=== PATIENT | female | born 1990 | race Caucasian/White ===

== ENCOUNTER 2016-06-22 20:20 | Outpatient (CLI) | payer OTHER ==
[~2016-06-22] VITALS: Ht 167.6 cm; Wt 93.3 kg
[~2016-06-22 20:20] MED LIST: CIPR500T4 PO; FLUT9.9S NASAL; IBUP100T31; METR500T PO; METR70GE15 VAG; NITR-58 PO; PHEN-538 PO; PSEU30TA38 PO
[2016-06-22 21:00] VITALS: BP 118/75; PULSE 85; RESP 18
[2016-06-22] MEDS ORDERED: FERR134T PO (21:08)
[2016-06-22] MEDS ORDERED: PRENAT PO (21:08)
[2016-06-22] MEDS ORDERED: CALC600T5 PO (21:08)
--- NOTE | 2016-06-22 21:57 | PN ---
Date/Time of Note Date/Time of Note DATE: 06/22/16 TIME: 21:38 OB Subjective Subjective Subjective Patient c/o fevers at home and sore throat; she is afebrile her. No obstetric complaints; good fm, no vb, no LOF OB Objective Objective Objective Nml VS Abdomen- gravid, n/t SVE- deferred FHT- CAt I [place]-no ctx Abdomen: WNL Accelerations: Accelerations Present Decelerations: No Decelerations Varibility: Moderate Contractions on Admission: None OB Assessment/Plan Other Assessment: patient w URI, possible strep throat - reassuring status - no obstetric complaints Other plan: no obstetric complaints sent to main ED for rapid strep, eval of sore throat TEMO COTTRELL MD Jun 22, 2016 21:55
--- NOTE | 2016-06-22 22:43 | TRIAGE ---
OB Triage Datetime Report Generated by CPN: 06/22/2016 22:43 Datetime: 06/22/2016 20:50 Time of Arrival: 06/22/2016 20:13 EGA: 32.1 Arrived By: Wheelchair Arrived From: Home Chief Complaint: w/ c/o allergies, congestion, sore throat and fever at night since Sunday Movement: Present Contractions: Denies/Absent Rupture of Membranes: Denies Vaginal Bleeding: None Vaginal Discharge: Denies Recent Sexual Intercouse: Denies Abdominal Trauma: Not Applicable Patient Complaints: Fever; Runny Nose; Other Time Provider Notified: 06/22/2016 21:15 Provider Notified: Dr Granado Initial Plan: EFM Datetime: 06/22/2016 20:35 Maternal Assessment Level of Consciousness: Fully Conscious Headache: Denies Blurred Vision: No Nausea/Vomiting: Denies RUQ Epigastric Pain: Denies Facial Edema: None Labor Evaluation Frequency: placed Monitor Mode: External Heart Rate Monitor Mode: External US Comments: FHT 140 Pain Assessment Pain Scale: 6 Pain Presence: Constant Pain Type: Ache Pain Assessment Comments: throat
== END 2016-06-22 21:46 | disposition home or self-care (01) ==
LOC: OBT 20:20 → L-D 20:21 → OBT 21:46
PROVIDERS: ATTEND Obstetrics & Gynecology
DX: O99.513 Diseases of the respiratory system complicating pregnancy, third trimester (principal); J06.9 Acute upper respiratory infection, unspecified; Z3A.32 32 weeks gestation of pregnancy

== ENCOUNTER 2016-06-22 21:51 | Emergency (ER) | payer SELFPAY ==
[~2016-06-22] VITALS: Ht 167.6 cm; Wt 92.8 kg
[~2016-06-22 21:51] MED LIST changes: +CALC600T5 PO; +FERR134T PO; +PRENAT PO
[2016-06-22 21:55] VITALS: Ht 167.6 cm; Wt 92.8 kg
== END 2016-06-22 23:32 | disposition left against medical advice (07) ==
LOC: FTE 21:51
DX: Z53.21 Procedure and treatment not carried out due to patient leaving prior to being seen by health care provider (principal)

== ENCOUNTER 2016-08-04 12:12 | Observation (INO) | payer OTHER ==
[~2016-08-04] VITALS: Ht 167.6 cm; Wt 99.4 kg
[~2016-08-04 12:12] MED LIST changes: -CIPR500T4 PO; -FLUT9.9S NASAL; -IBUP100T31; -METR500T PO; -METR70GE15 VAG; -PHEN-538 PO; -PSEU30TA38 PO
[2016-08-04 12:27] VITALS: Ht 167.6 cm; Wt 99.4 kg
[2016-08-04 12:28] VITALS: BP 120/65; PULSE 85; RESP 18
--- NOTE | 2016-08-04 13:32 | RADRPT ---
PROCEDURE: US OB biophysical profile. CLINICAL INDICATION: evaluation TECHNIQUE: Multiple sonographic images of the pelvis were obtained. The images were reviewed on a PACS workstation. COMPARISON: No prior studies are available for comparison. FINDINGS: There is a single viable intrauterine gestation. Cardiac activity is present with 137 beats per min carmen. There is a vertex presentation. The placenta is right lateral in location. There is no evidence of placental abruption. There is a normal amount of amniotic fluid with an KEISHA = 12.8 cm. Biophysical profile: movement 2/2 tone 2/2. breathing 2/2 KEISHA 2/2 Total 11/28 RPTAT: AA . IMPRESSION: Normal biophysical profile. Normal KEISHA. Cephalic presentation. Physician Saige Date Time Electronically viewed and signed by Physician Saige on 08/04/2016 13:31 /
[2016-08-04] MEDS ORDERED: LACTATED RINGER'S 1,000 ML IV SCH ×2 (14:55→23:52)
--- NOTE | 2016-08-04 15:02 | HP ---
Date/Time of Note Date/Time of Note DATE: 08/04/16 TIME: 15:00 OB - History Hx of Present Free Text/Dictation 38+wks GA Decreased movements and some variables : 1 Para: 0 Care: Good Care Ultrasounds: Normal mid trimester US Obstetrical Complications: None Medical Complications: None Past Family/Social History * Past Medical, Surgical, Family and Obstetric Histories reviewed from chart. OB Admission Exam Vital Signs Vital Signs Vital Signs Date Time Temp Pulse Resp B/P Pulse Ox O2 Delivery O2 Flow Rate FiO2 08/04/16 12:28 98.2 85 18 120/65 Room Air Physical Exam Cervical Dilatation: None Effacement: 0% Station: Ballotable Membranes: Intact Heart Rate: 140's Accelerations: Accelerations Present Decelerations: No Decelerations Varibility: Moderate Contractions on Admission: 6-10 Minutes Apart OB Assessment/Plan Reason for admission: observation Plan: Expectant Management Other plan: Prolonged Monitoring JALYN HEWITT M.D. Aug 04, 2016 15:02
--- NOTE | 2016-08-04 15:07 | TRIAGE ---
OB Triage Datetime Report Generated by CPN: 08/04/2016 15:06 Datetime: 08/04/2016 14:38 Heart Rate FHR Baseline Rate: 145 Monitor Mode: External US Variability: Moderate 6-25 bpm Accelerations: 15X15 Decelerations: None Category: Category I Datetime: 08/04/2016 14:19 Vaginal Exam Dilatation (cms): 0.0 Effacement (%): 50 Station: -3 Exam By: S. PRICILA Datetime: 08/04/2016 14:11 Decelerations: Variable Datetime: 08/04/2016 13:37 Stage of : OB Triage Headache: Denies Labor Evaluation Frequency: 0 Monitor Mode: External Heart Rate FHR Baseline Rate: 150 Variability: Moderate 6-25 bpm Accelerations: 15X15 Decelerations: None Category: Category I Pain Assessment Pain Presence: None/Denies Pain Type: N/A Datetime: 08/04/2016 12:19 Assessment Type: Admission Assessment Maternal Assessment Level of Consciousness: Fully Conscious DTR's/Clonus: DTRs 2+; No Clonus Headache: Denies Blurred Vision: No Respiratory Effort: Unlabored; Regular Rhythm; Equal Expansion Breath Sounds, Left: Clear and Equal Breath Sounds, Right: Clear and Equal Nausea/Vomiting: Denies RUQ Epigastric Pain: Denies Lower Extremities Edema: None Degree: None Upper Extremities Edema: None Degree: None Facial Edema: None Fall Risk Assessment History of Falling: (0) No Secondary Diagnosis: (0) No Ambulatory Aid: (0) Bedrest/Nurse Assist IV Therapy: (0) No Gait: (0) Normal/Bedrest/Immobile Mental Status: (0) Oriented to Own Ability Fall Score: 0 Fall Risk Score Definition: No Risk: No action required Datetime: 08/04/2016 12:17 Time of Arrival: 08/04/2016 12:04 EGA: 38.2 Arrived By: Ambulatory Arrived From: Dr. Davis Chief Complaint: DECREASED MOVEMENT SINCE 1000 TODAY. PT. WITH PRESCRIPTION FOR NST FROM [facility] MAGY. Movement: Decreased Contractions: Denies/Absent Rupture of Membranes: Denies Vaginal Bleeding: None Vaginal Discharge: Denies Recent Sexual Intercouse: Denies Abdominal Trauma: Not Applicable Patient Complaints: None Time Provider Notified: 08/04/2016 12:57 Provider Notified: DR. HOLLIS Initial Plan: NST Datetime: 08/04/2016 12:15 Pain Assessment Pain Presence: None/Denies Datetime: 08/04/2016 12:13 Monitor Mode: External US Datetime: 06/22/2016 21:30 Stage of : OB Triage Datetime: 06/22/2016 21:00 Stage of : OB Triage Labor Evaluation Frequency: 0 Pattern: Normal: <= 5 Contractions in 10 Minutes Resting Tone Ashley: Relaxed Heart Rate FHR Baseline Rate: 150 Monitor Mode: External US FHR Baseline Changes: No Baseline Change Variability: Moderate 6-25 bpm Accelerations: 15X15 Decelerations: None Category: Category I Datetime: 06/22/2016 20:50 EGA: 32.1
[2016-08-04] MEDS: LACTATED RINGER'S 1,000 ML IV SCH ×2 (15:49→20:59)
[2016-08-04 16:03] LABS: ADD SCAN DIFF NO
[2016-08-04 16:05] LABS: BASOPHILS % 0.2 % (0.0-2.0); EOSINOPHILS # 0.1 10^3/ul (0.0-0.5); EOSINOPHILS % 0.5 % (0.0-7.0); HEMOGLOBIN 13.8 g/dl (12.0-16.0); LYMPHOCYTES # 1.6 10^3/ul (0.8-2.9); LYMPHOCYTES % 10.8 % (15.0-51.0); MEAN CORPUSCULAR HEMOGLOBIN 30.3 pg (29.0-33.0); MEAN CORPUSCULAR HGB CONC 33.7 g/dl (32.0-37.0); MEAN CORPUSCULAR VOLUME 89.9 fl (82.0-101.0); MEAN PLATELET VOLUME 11.7 fl (7.4-10.4); MONOCYTE # 1.4 10^3/ul (0.3-0.9); MONOCYTES % 9.7 % (0.0-11.0); NEUTROPHIL # 11.3 10^3/ul (1.6-7.5); NEUTROPHILS % 77.9 % (39.0-77.0); PLATELET COUNT 230 10^3/UL (140-415); RED BLOOD COUNT 4.56 10^6/ul (4.20-5.40); RED CELL DISTRIBUTION WIDTH 13.8 % (11.5-14.5); WHITE BLOOD COUNT 14.5 10^3/ul (4.8-10.8)
[2016-08-04 16:17] LABS: INR 0.9; PARTIAL THROMBOPLASTIN TIME 27.3 Sec (25.0-35.0); PROTIME 12.1 Sec (12.2-14.2); PT RATIO 0.9
[2016-08-05] MEDS: LACTATED RINGER'S 1,000 ML IV SCH (05:07)
[2016-08-05] MEDS ORDERED: MULTIVIT/MIN/FOLATE/IRON/PREN TAB PO SCH (09:00)
[2016-08-05] MEDS ORDERED: FERROUS SULFATE (EC) 325 MG TAB PO SCH (09:00)
[2016-08-05] MEDS ORDERED: OXYTOCIN 30 UNITS/LR 500 ML IV SCH (09:30)
--- NOTE | 2016-08-05 10:29 | QN ---
Documentation Comment Laborist 38+3wks GA Pt admitted yesterday for prolonged monitoring 2/2 variable decels in triage in the setting of presentation for decreased FM with BPP 11/28. FHT reviewed this AM and variable decel noted x1 along with several non- repetitive late-shaped decels without corresponding UCs and early decel x1. On toco, rare UCs were seen. Given Category 2 FHT, recommended initiating a CLINICAL NURSE LEADER for reassurance and to evaluate ability to withstand stress of frequent UCs. Pt declined in favor of going home. States she feels fine and would rather go home and return if she felt something were wrong. Pt was asked to sign an AMA form prior to leaving the hospital and after reviewing risks of leaving prior to confirming wellbeing and placenta functionality with more frequent UCs. Risks discussed include but are not limited to , distress or compromise and neurological injury in fetus. Pt was able to verbalize risks discussed and acknowledged risks may be greater than those stated prior to signing AMA form. She was also able to verbalize the reasoning for CLINICAL NURSE LEADER prior to signing AMA form. Pt was counseled and form signed in presence of patient's RN. Questions were answered to the patient's satisfaction. She reports her next OB appt is Friday 08/[address] Ledezma. Return precautions reviewed in detail, including ROM, labor and FKC. GRANT WATSON MD Aug 05, 2016 10:29
== END 2016-08-05 10:20 | disposition left against medical advice (07) ==
LOC: L-D 12:12 → OBT 12:12 → OBG 15:07
PROVIDERS: ADMIT Obstetrics & Gynecology; ATTEND Obstetrics & Gynecology
DX: O36.8130 Decreased fetal movements, third trimester, not applicable or unspecified (principal); Z3A.38 38 weeks gestation of pregnancy
CPT/HCPCS: 76818; 85025; 85610; 85730; 86592; J7120; Z7500; Z7610; 99217; G0378; G0463

== ENCOUNTER 2016-08-13 07:20 | Inpatient (IN) | payer OTHER ==
[~2016-08-13] VITALS: Ht 167.6 cm; Wt 100.9 kg
[2016-08-13 07:35] VITALS: BP 130/72; PULSE 75; RESP 20; Ht 167.6 cm; Wt 100.9 kg
--- NOTE | 2016-08-13 08:07 | TRIAGE ---
OB Triage Datetime Report Generated by CPN: 08/13/2016 08:07 Datetime: 08/13/2016 07:42 Vaginal Exam Dilatation (cms): 3.0 Effacement (%): 70 Station: -2 Exam By: khemani Vaginal Bleeding: None Cervix, Consistency: Moderate Cervix, Position: Midposition Datetime: 08/13/2016 07:31 Assessment Type: Triage Maternal Assessment Level of Consciousness: Fully Conscious Maternal Assessment Level of Consciousness: Fully Conscious DTR's/Clonus: DTRs 2+; No Clonus Headache: Denies Headache: Denies Blurred Vision: No Blurred Vision: No Respiratory Effort: Unlabored; Regular Rhythm; Equal Expansion Respiratory Effort: Unlabored Breath Sounds, Left: Clear and Equal Breath Sounds, Right: Clear and Equal Nausea/Vomiting: Denies Nausea/Vomiting: Denies RUQ Epigastric Pain: Denies RUQ Epigastric Pain: Denies Lower Extremities Edema: Bilateral Lower Extremities Degree: 1+ Upper Extremities Edema: None Degree: None Facial Edema: None Fall Risk Assessment History of Falling: (0) No Secondary Diagnosis: (0) No Ambulatory Aid: (0) Bedrest/Nurse Assist IV Therapy: (0) No Gait: (0) Normal/Bedrest/Immobile Mental Status: (0) Oriented to Own Ability Fall Score: 0 Fall Risk Score Definition: No Risk: No action required Datetime: 08/13/2016 07:24 Monitor Mode: External Monitor Mode: External US Datetime: 08/05/2016 09:04 Stage of : Antepartum Maternal Assessment Level of Consciousness: Fully Conscious Headache: Denies Nausea/Vomiting: Denies RUQ Epigastric Pain: Denies Labor Evaluation Frequency: rare Monitor Mode: External Duration (sec)2399: 90 Quality: Mild Heart Rate FHR Baseline Rate: 140 Monitor Mode: External US Variability: Moderate 6-25 bpm Accelerations: 10X10 Pain Assessment Pain Scale: 0 Pain Presence: None/Denies Membrane Status: Intact Vaginal Bleeding: None Datetime: 08/05/2016 08:05 Stage of : Antepartum Maternal Assessment Level of Consciousness: Fully Conscious Headache: Denies Nausea/Vomiting: Denies RUQ Epigastric Pain: Denies Labor Evaluation Frequency: rare Monitor Mode: External Duration (sec)2399: 90 Quality: Mild Contraction Comments: pt. denies Heart Rate FHR Baseline Rate: 145 Monitor Mode: External US Variability: Moderate 6-25 bpm Accelerations: 10X10 Decelerations: Early Pain Assessment Pain Scale: 0 Pain Presence: None/Denies Membrane Status: Intact Vaginal Bleeding: None Datetime: 08/05/2016 07:17 Assessment Type: Ongoing Assessment Maternal Assessment Level of Consciousness: Fully Conscious Maternal Assessment Level of Consciousness: Fully Conscious DTR's/Clonus: DTRs 2+; No Clonus Headache: Denies Headache: Denies Blurred Vision: No Blurred Vision: No Respiratory Effort: Unlabored; Regular Rhythm; Equal Expansion Respiratory Effort: Unlabored Breath Sounds, Left: Clear and Equal Breath Sounds, Right: Clear and Equal Nausea/Vomiting: Denies Nausea/Vomiting: Denies RUQ Epigastric Pain: Denies RUQ Epigastric Pain: Denies Lower Extremities Edema: None Upper Extremities Edema: None Facial Edema: None Fall Risk Assessment History of Falling: (0) No Secondary Diagnosis: (0) No Ambulatory Aid: (0) Bedrest/Nurse Assist Gait: (0) Normal/Bedrest/Immobile Mental Status: (0) Oriented to Own Ability Pain Presence: None/Denies Datetime: 08/05/2016 07:00 Labor Evaluation Frequency: OCC Monitor Mode: External Heart Rate FHR Baseline Rate: 135 Monitor Mode: External US FHR Baseline Changes: No Baseline Change Variability: Moderate 6-25 bpm Accelerations: 15X15 Decelerations: None Category: Category I Datetime: 08/05/2016 06:00 Labor Evaluation Frequency: IRREG Monitor Mode: External Quality: Mild Heart Rate FHR Baseline Rate: 135 Monitor Mode: External US FHR Baseline Changes: No Baseline Change Variability: Moderate 6-25 bpm Accelerations: 15X15 Decelerations: None Category: Category I Datetime: 08/05/2016 05:05 Temperature Route: Oral Pain Assessment Pain Scale: 0 Pain Goal: 4 Datetime: 08/05/2016 05:00 Monitor Mode: External Duration (sec)2399: 0 Heart Rate FHR Baseline Rate: 140 Monitor Mode: External US FHR Baseline Changes: No Baseline Change Variability: Moderate 6-25 bpm Accelerations: 15X15 Decelerations: None Category: Category I Datetime: 08/05/2016 04:00 Labor Evaluation Frequency: 0 Monitor Mode: External Heart Rate FHR Baseline Rate: 140 Monitor Mode: External US FHR Baseline Changes: No Baseline Change Variability: Moderate 6-25 bpm Accelerations: 15X15 Decelerations: None Category: Category I Datetime: 08/05/2016 03:00 Labor Evaluation Frequency: 0 Monitor Mode: External Heart Rate FHR Baseline Rate: 140 Monitor Mode: External US FHR Baseline Changes: No Baseline Change Variability: Moderate 6-25 bpm Accelerations: 15X15 Decelerations: None Category: Category I Datetime: 08/05/2016 02:00 Labor Evaluation Frequency: 0 Monitor Mode: External Heart Rate FHR Baseline Rate: 150 Monitor Mode: External US FHR Baseline Changes: No Baseline Change Variability: Moderate 6-25 bpm Accelerations: 15X15 Decelerations: None Category: Category I Datetime: 08/05/2016 01:00 Labor Evaluation Frequency: 0 Monitor Mode: External Heart Rate FHR Baseline Rate: 145 Monitor Mode: External US FHR Baseline Changes: No Baseline Change Variability: Moderate 6-25 bpm Accelerations: 15X15 Decelerations: None Category: Category I Datetime: 08/05/2016 00:09 Temperature Route: Oral Datetime: 08/05/2016 00:00 Labor Evaluation Frequency: 0 Monitor Mode: External Heart Rate FHR Baseline Rate: 145 Monitor Mode: External US FHR Baseline Changes: No Baseline Change Variability: Moderate 6-25 bpm Accelerations: 15X15 Decelerations: None Category: Category I Datetime: 08/04/2016 23:00 Labor Evaluation Frequency: 0 Monitor Mode: External Heart Rate FHR Baseline Rate: 145 Monitor Mode: External US FHR Baseline Changes: No Baseline Change Variability: Moderate 6-25 bpm Accelerations: 15X15 Decelerations: None Category: Category I Datetime: 08/04/2016 22:00 Labor Evaluation Frequency: 0 Monitor Mode: External Heart Rate FHR Baseline Rate: 150 Monitor Mode: External US FHR Baseline Changes: No Baseline Change Variability: Moderate 6-25 bpm Accelerations: 15X15 Decelerations: None Category: Category I Datetime: 08/04/2016 21:00 Monitor Mode: External Duration (sec)2399: 0 Heart Rate FHR Baseline Rate: 155 Monitor Mode: External US FHR Baseline Changes: No Baseline Change Variability: Moderate 6-25 bpm Accelerations: 15X15 Decelerations: None Category: Category I Datetime: 08/04/2016 20:00 Labor Evaluation Frequency: SL IRRITABL Monitor Mode: External Duration (sec)2399: 20-30 Quality: Mild Heart Rate FHR Baseline Rate: 150 Monitor Mode: External US FHR Baseline Changes: No Baseline Change Variability: Moderate 6-25 bpm Accelerations: 15X15 Decelerations: None Category: Category I Datetime: 08/04/2016 19:20 Assessment Type: Ongoing Assessment Maternal Assessment Level of Consciousness: Fully Conscious Headache: Denies Blurred Vision: No Respiratory Effort: Unlabored; Regular Rhythm; Equal Expansion Nausea/Vomiting: Denies RUQ Epigastric Pain: Denies Lower Extremities Edema: None Upper Extremities Edema: None Facial Edema: None Temperature Route: Oral Fall Risk Assessment History of Falling: (0) No Secondary Diagnosis: (0) No Ambulatory Aid: (0) Bedrest/Nurse Assist IV Therapy: (20) Yes Gait: (0) Normal/Bedrest/Immobile Mental Status: (0) Oriented to Own Ability Fall Score: 20 Fall Risk Score Definition: No Risk: No action required Pain Assessment Pain Scale: 0 Pain Goal: 4 Datetime: 08/04/2016 19:15 Stage of : Antepartum Datetime: 08/04/2016 18:50 Labor Evaluation Frequency: 0 Monitor Mode: External Duration (sec)2399: 0 Pattern: Normal: <= 5 Contractions in 10 Minutes Heart Rate FHR Baseline Rate: 150 Monitor Mode: External US FHR Baseline Changes: No Baseline Change Variability: Moderate 6-25 bpm Accelerations: 15X15 Decelerations: None Category: Category I Datetime: 08/04/2016 18:00 Labor Evaluation Frequency: OCCASIONAL Monitor Mode: External Duration (sec)2399: 60-80 Pattern: Normal: <= 5 Contractions in 10 Minutes Heart Rate FHR Baseline Rate: 140 Monitor Mode: External US FHR Baseline Changes: No Baseline Change Variability: Moderate 6-25 bpm Accelerations: 15X15 Decelerations: None Category: Category I Datetime: 08/04/2016 17:00 Labor Evaluation Frequency: 2-9 Monitor Mode: External Duration (sec)2399: 40-80 Pattern: Normal: <= 5 Contractions in 10 Minutes Resting Tone Cob[place]: Relaxed Heart Rate FHR Baseline Rate: 140 Monitor Mode: External US FHR Baseline Changes: No Baseline Change Variability: Marked >25 bpm Accelerations: 15X15 Decelerations: None Category: Category I Datetime: 08/04/2016 16:01 Labor Evaluation Frequency: OCCASIONAL Monitor Mode: External Duration (sec)2399: 40-70 Pattern: Normal: <= 5 Contractions in 10 Minutes Resting Tone Cob[place]: Relaxed Contraction Comments: DENIES FEELING ANY UC'S Heart Rate FHR Baseline Rate: 140 Monitor Mode: External US FHR Baseline Changes: No Baseline Change Variability: Moderate 6-25 bpm Accelerations: 15X15 Decelerations: None Category: Category I Datetime: 08/04/2016 15:24 Assessment Type: Admission Assessment Time of Arrival: 08/13/2016 07:14 EGA: 39.4 Arrived By: Ambulatory Arrived From: Home Chief Complaint: PT HERE C/O UC'S SINCE 399 Movement: Present Contractions: Irregular Time Contractions Began: 08/13/2016 04:00 Rupture of Membranes: Denies Vaginal Bleeding: None Vaginal Discharge: Present Recent Sexual Intercouse: Denies Abdominal Trauma: Not Applicable Patient Complaints: Contractions; Cramping; Back Pain Time Provider Notified: 08/13/2016 08:04 Provider Notified: BUNNY Initial Plan: EFM, SVE Maternal Assessment Level of Consciousness: Fully Conscious DTR's/Clonus: DTRs 2+; No Clonus Headache: Denies Blurred Vision: No Respiratory Effort: Unlabored; Regular Rhythm; Equal Expansion Breath Sounds, Left: Clear and Equal Breath Sounds, Right: Clear and Equal Nausea/Vomiting: Denies RUQ Epigastric Pain: Denies Lower Extremities Edema: Bilateral Lower Extremities Degree: TRACE PEDAL EDEMA Facial Edema: None Fall Risk Assessment History of Falling: (0) No Secondary Diagnosis: (0) No Ambulatory Aid: (0) Bedrest/Nurse Assist IV Therapy: (0) No Gait: (0) Normal/Bedrest/Immobile Mental Status: (0) Oriented to Own Ability Fall Score: 0 Fall Risk Score Definition: No Risk: No action required Pain Assessment Pain Scale: 0 Pain Presence: None/Denies Datetime: 08/04/2016 15:22 Time of Arrival: 08/04/2016 15:10 EGA: 38.2 Arrived By: Wheelchair Arrived From: Other Unit in Hospital Datetime: 08/04/2016 12:19 Fall Score: 0 Fall Risk Score Definition: No Risk: No action required Datetime: 08/04/2016 12:17 EGA: 38.2 Datetime: 06/22/2016 20:50 EGA: 32.1
[2016-08-13] MEDS ORDERED: MISOPROSTOL 200 MCG TAB PR PRN ×2 (08:30→15:00)
[2016-08-13] MEDS ORDERED: LACTATED RINGER'S 1,000 ML IV PRN (08:30)
[2016-08-13] MEDS ORDERED: BUTORPHANOL 2 MG INJ IV PRN (08:30)
[2016-08-13] MEDS ORDERED: OXYTOCIN 30 UNITS/LR 500 ML IV PRN ×2 (08:30→15:00)
[2016-08-13] MEDS ORDERED: METHYLERGONOVINE 0.2 MG INJ IM PRN ×2 (08:30→15:00)
[2016-08-13] MEDS ORDERED: OXYTOCIN 30 UNITS/LR 500 ML IV SCH ×2 (08:30)
[2016-08-13] MEDS ORDERED: IBUPROFEN 600 MG TAB PO PRN (08:30)
[2016-08-13] MEDS ORDERED: CARBOPROST 250 MCG INJ IM PRN ×2 (08:30→15:00)
[2016-08-13] MEDS ORDERED: LIDOCAINE 1% (MPF) 30 ML INJ INJ PRN (08:30)
[2016-08-13] MEDS: LACTATED RINGER'S 1,000 ML IV SCH ×4 (08:33→21:53)
[2016-08-13 09:10] LABS: ADD SCAN DIFF NO
[2016-08-13 09:13] LABS: ABNORMAL IP MESSAGE 1; BASOPHIL # 0.1 10^3/ul (0.0-0.1); BASOPHILS % 0.4 % (0.0-2.0); EOSINOPHILS # 0.1 10^3/ul (0.0-0.5); EOSINOPHILS % 0.6 % (0.0-7.0); HEMATOCRIT 39.6 % (37.0-47.0); HEMOGLOBIN 13.7 g/dl (12.0-16.0); LYMPHOCYTES # 1.5 10^3/ul (0.8-2.9); LYMPHOCYTES % 8.8 % (15.0-51.0); MEAN CORPUSCULAR HEMOGLOBIN 30.9 pg (29.0-33.0); MEAN CORPUSCULAR HGB CONC 34.6 g/dl (32.0-37.0); MEAN CORPUSCULAR VOLUME 89.4 fl (82.0-101.0); MEAN PLATELET VOLUME 11.7 fl (7.4-10.4); MONOCYTE # 1.7 10^3/ul (0.3-0.9); MONOCYTES % 10.2 % (0.0-11.0); NEUTROPHIL # 13.3 10^3/ul (1.6-7.5); NEUTROPHILS % 78.9 % (39.0-77.0); PLATELET COUNT 214 10^3/UL (140-415); RED BLOOD COUNT 4.43 10^6/ul (4.20-5.40); RED CELL DISTRIBUTION WIDTH 13.5 % (11.5-14.5); WHITE BLOOD COUNT 16.8 10^3/ul (4.8-10.8)
[2016-08-13 09:26] LABS: INR 0.83; PROTIME 11.4 Sec (12.2-14.2); PT RATIO 0.9
[2016-08-13 09:27] LABS: PARTIAL THROMBOPLASTIN TIME 29.5 Sec (25.0-35.0)
--- NOTE | 2016-08-13 09:41 | RADRPT ---
PROCEDURE: Biophysical profile CLINICAL INDICATION: distress, decelerations TECHNIQUE: Color and reese-scale ultrasound images of an intrauterine gestation were obtained. COMPARISON: August 04, 2016 FINDINGS: A single live intrauterine gestation is identified in cephalic position with an estimated hear t rate of 139 beats per minute. The placenta is located laterally to the right and has a grade III. The cervix is obscured by head shadows. No evidence of abruption identified. KEISHA is 8.7 cm. movement 2/2. tone 0/2. breathing movement 2/2. Qualitative AFV 2/2 Total biophysical profile 09/28 IMPRESSION: 09/28 biophysical profile. tone is not identified. RPTAT: AA .Dyllan Sanchez MD, Date Time Electronically viewed and signed by .Dyllan Sanchez MD, on 08/13/2016 09:41 .P/
[2016-08-13] MEDS ORDERED: CEFAZOLIN 2 GM/50 ML (PMX) 50 ML IV SCH (10:00)
[2016-08-13] MEDS ORDERED: OXYTOCIN 10 UNIT INJ ONE (10:38)
[2016-08-13] MEDS ORDERED: METOCLOPRAMIDE 10 MG INJ ONE (10:38)
[2016-08-13] MEDS ORDERED: EPHEDrine SULFATE 50 MG/5 ML SYG ONE (10:38)
[2016-08-13] MEDS ORDERED: morphine SULFATE/PF (10 MG/10 ML) INJ ONE (10:38)
[2016-08-13] MEDS ORDERED: ONDANSETRON 4 MG INJ ONE (10:38)
[2016-08-13] MEDS ORDERED: OXYTOCIN 30 UNITS/LR 500 ML IV ONE (10:38)
--- NOTE | 2016-08-13 10:43 | HP ---
Date/Time of Note Date/Time of Note DATE: 08/13/16 TIME: 10:41 OB - History Hx of Present Free Text/Dictation term preg. admitted in labor having variable decleraions and a decreased BPP : 1 Para: 0 Care: Good Care Ultrasounds: Normal mid trimester US Obstetrical Complications: None Medical Complications: None Past Family/Social History * Past Medical, Surgical, Family and Obstetric Histories reviewed from chart. OB Admission Exam Vital Signs Vital Signs Vital Signs Date Time Temp Pulse Resp B/P Pulse Ox O2 Delivery O2 Flow Rate FiO2 08/13/16 07:35 98.4 75 20 130/72 97 Room Air Physical Exam HEENT: WNL Heart: Rhythm Normal Lungs: Clear, Equal Abdomen: WNL Extremities: Normal Reflexes: Normal Cervical Dilatation: 2cm Effacement: 25% Station: -3 Membranes: Ruptured Heart Rate: 130's Decelerations: Variable Decelerations Varibility: Moderate Contractions on Admission: 6-10 Minutes Apart Intensity: Mild Last 72 hours Lab Results CBC & BMP 08/13/16 08:15 OB Assessment/Plan Reason for admission: section Plan: Section SAMANTHA HOLLIS MD Aug 13, 2016 10:43
--- NOTE | 2016-08-13 10:45 | OPR ---
Operative Report Planned Procedure Procedure date Aug 13, 2016 Performed by: SAMANTHA HOLLIS MD Assisting provider: JALYN HEWITT M.D. Anesthesia Type: spinal Procedure Description Under satisfactory spinal anesthesia, the patient was prepped and draped and placed in a supine position, tilted to the left. Pfannenstiel incision was made , carried through the subcutaneous tissue. Bleeders brought under control with electrocautery. Fascia incised to the length of the incision. Rectus muscles from the fascia, divided midline. Peritoneum exposed, entered through a transverse incision. Exploration of abdomen revealed gravid uterus. Bladder flap was developed. Transverse incision was made in the lower segment of the uterus. Amniotic sac ruptured. [] amniotic fluid noted. [] Nasal oropharyngeal suction was performed. The baby was handed to the team for immediate attention. The placenta was delivered manually intact. Uterine cavity was cleaned with wet sponge and drainage established. Uterus closed in 2 layers using one monocryl in continuous fashion. Peritoneal cavity irrigated with warm saline. Sponge, needle and instrument count reported to be correct. Abdominal peritoneum closed with one monocryl continuously. Rectus muscle approximated with []. Fascia closed with one monocryl, and skin closed with gama. Estimated blood loss 700[]mL. Urine bag contained []mL of urine Post-Procedure Findings: Live Baby [], Apgars [] and [], weight [], position [], [] presentation []cord. Specimen removed: Yes Complications: None Pt Condition post procedure: stable Physician Certification I, the undersigned physician, hereby certify that I have discussed the procedure described in this consent form with this patient (or the patient's legal technical support representative), including: * The risk and benefits of the procedure; * Any adverse reactions that may reasonably be expected to occur; * Any alternative efficacious methods of treatment which may be medically viable ; * The potential problems that may occur during recuperation; * Potential for blood transfusion and associated risks/benefits; and * Any research or economic interest I may have regarding this treatment. I further certify that the patient/legally responsible person was encouraged to ask question and that all questions were answered. SAMANTHA HOLLIS MD Aug 13, 2016 10:45
[2016-08-13] MEDS ORDERED: morphine SULFATE/PF (10 MG/10 ML) INJ SPINAL ONE (12:30)
[2016-08-13] MEDS ORDERED: NALOXONE (0.4 MG/ML) INJ IV PRN (12:30)
[2016-08-13] MEDS ORDERED: ONDANSETRON 4 MG INJ IV PRN (12:30)
[2016-08-13] MEDS ORDERED: EPHEDrine SULFATE 50 MG/5 ML SYG IV PRN (12:30)
[2016-08-13] MEDS ORDERED: DIPHENHYDRAMINE 50 MG INJ IV PRN (12:30)
[2016-08-13] MEDS ORDERED: morphine 2 MG INJ IV PRN ×2 (12:30)
[2016-08-13] MEDS ORDERED: HYDROmorphONE 1 MG/ML SYG IV PRN ×2 (12:30)
[2016-08-13] MEDS: KETOROLAC 30 MG INJ IV PRN (12:57)
[2016-08-13 14:05] VITALS: BP 125/81; PULSE 87; RESP 18
[2016-08-13] MEDS ORDERED: LANOLIN 7 GM TUBE TOP PRN (15:00)
[2016-08-13] MEDS ORDERED: NACL 0.9% 3 ML SYG IV SCH (15:00)
[2016-08-13] MEDS ORDERED: ACETAMINOPHEN/CODEINE #3 TAB PO PRN (15:00)
[2016-08-13] MEDS ORDERED: NA PHOSPHATE/BIPHOS 133 ML ENEMA PR PRN (15:00)
[2016-08-13 16:20] VITALS: BP 118/61; PULSE 89; RESP 16
[2016-08-13] MEDS: OXYTOCIN 30 UNITS/LR 500 ML IV SCH ×2 (17:43→18:38)
[2016-08-13 20:00] VITALS: BP 127/75; PULSE 102; RESP 18
[2016-08-14] VITALS: BP 125/59; PULSE 109; RESP 20
[2016-08-14 04:00] VITALS: BP 106/58; PULSE 105; RESP 18
[2016-08-14] MEDS: KETOROLAC 30 MG INJ IV PRN ×2 (05:01→10:53)
[2016-08-14] MEDS: LACTATED RINGER'S 1,000 ML IV SCH (05:56)
[2016-08-14 07:39] LABS: ADD SCAN DIFF NO
[2016-08-14 07:45] VITALS: BP 105/56; PULSE 94; RESP 19
[2016-08-14 07:48] LABS: ABNORMAL IP MESSAGE 1; BASOPHILS % 0.2 % (0.0-2.0); EOSINOPHILS # 0.1 10^3/ul (0.0-0.5); EOSINOPHILS % 0.4 % (0.0-7.0); HEMATOCRIT 35.7 % (37.0-47.0); HEMOGLOBIN 11.8 g/dl (12.0-16.0); LYMPHOCYTES # 1.3 10^3/ul (0.8-2.9); LYMPHOCYTES % 8.3 % (15.0-51.0); MEAN CORPUSCULAR HEMOGLOBIN 30.1 pg (29.0-33.0); MEAN CORPUSCULAR HGB CONC 33.1 g/dl (32.0-37.0); MEAN CORPUSCULAR VOLUME 91.1 fl (82.0-101.0); MEAN PLATELET VOLUME 11.9 fl (7.4-10.4); MONOCYTE # 1.6 10^3/ul (0.3-0.9); MONOCYTES % 10.3 % (0.0-11.0); NEUTROPHIL # 12.7 10^3/ul (1.6-7.5); NEUTROPHILS % 80.2 % (39.0-77.0); PLATELET COUNT 184 10^3/UL (140-415); RED BLOOD COUNT 3.92 10^6/ul (4.20-5.40); WHITE BLOOD COUNT 15.9 10^3/ul (4.8-10.8)
[2016-08-14 11:30] VITALS: BP 103/55; PULSE 90; RESP 18
[2016-08-14] MEDS: IBUPROFEN 800 MG TAB PO SCH ×2 (14:00→21:37)
[2016-08-14 16:00] VITALS: BP 109/53; PULSE 84; RESP 18
[2016-08-14 20:00] VITALS: BP 114/53; PULSE 95; RESP 18
[2016-08-14] MEDS: OXYCODONE/ACETAMINOPHEN (5/325) TAB PO PRN (20:02)
[2016-08-15] MEDS: OXYCODONE/ACETAMINOPHEN (5/325) TAB PO PRN ×3 (01:57→20:05)
[2016-08-15 04:00] VITALS: BP 115/56; PULSE 79; RESP 18
[2016-08-15] MEDS: IBUPROFEN 800 MG TAB PO SCH ×3 (05:34→21:49)
[2016-08-15 08:00] VITALS: BP 123/61; PULSE 84; RESP 18
--- NOTE | 2016-08-15 10:49 | PN ---
Date/Time of Note Date/Time of Note DATE: 08/15/16 TIME: 10:40 OB Subjective Subjective Subjective Post C Section day 2 Patient is doing well, Ambulatory She is afebrile Abdomen is soft , Fundus is firm Incision is clean Moderate amount of lochia Breasts are soft, Nipples are intact No calf tenderness. No ankle edema Breast feeding the new born. New born is doing well Current Medications Medications (Trade) Dose Ordered Sig/Catrina Route PRN Reason Start Time Stop Time Status Last Admin Dose Admin Lactated Ringer's (Lr) 1,000 ml @ 125 mls/hr Q8H IV 08/13/16 08:07 08/13/16 14:44 DC 08/13/16 08:35 Butorphanol Tartrate (Stadol) 2 mg Q2H PRN IV PAIN 08/13/16 08:30 08/13/16 14:44 DC Lidocaine 30 ml 30 ml ONCE PRN INJ EPISIOTOMY/TEARING 08/13/16 08:30 08/13/16 14:44 DC Oxytocin/Lactated Ringer's 500 ml @ 125 mls/hr ONCE -MAY REPEAT X1 IV 08/13/16 08:30 08/13/16 14:44 DC 08/13/16 13:51 Oxytocin/Lactated Ringer's 500 ml @ 125 mls/hr ONCE IV 08/13/16 08:30 08/13/16 14:44 DC Ibuprofen 600 mg 600 mg ONCE PRN PO Mild Pain (Pain Score 1-3) 08/13/16 08:30 08/13/16 14:44 DC Lactated Ringer's 1,000 ml @ 2,000 mls/hr Q30M PRN IV PRE-EPIDURAL BOLUS 08/13/16 08:30 08/13/16 14:44 DC Oxytocin/Lactated Ringer's 500 ml @ 0 mls/hr ONCE PRN IV For Hemorrhage Management 08/13/16 08:30 08/13/16 14:44 DC Methylergonovine Maleate (Methergine) 0.2 mg ONCE PRN IM VAGINAL BLEEDING 08/13/16 08:30 08/13/16 14:44 DC Carboprost Tromethamine (Hemabate) 250 mcg ONCE PRN IM VAGINAL BLEEDING 08/13/16 08:30 08/13/16 14:44 DC Misoprostol 1000 mcg 1,000 mcg ONCE PRN ME VAGINAL BLEEDING 08/13/16 08:30 08/13/16 14:44 DC Cefazolin Sodium/ Dextrose (Ancef 2 Gm/50 ml (Pmx)) 50 ml @ 100 mls/hr ONCE IV 08/13/16 10:00 08/13/16 14:44 DC Ephedrine Sulfate 50 mg 50 mg STK-MED ONCE .ROUTE 08/13/16 10:38 08/13/16 10:39 DC Oxytocin/Lactated Ringer's 500 ml @ ud STK-MED ONCE IV 08/13/16 10:38 08/13/16 10:39 DC Morphine Sulfate (Duramorph) 10 mg STK-MED ONCE .ROUTE 08/13/16 10:38 08/13/16 10:39 DC Ondansetron HCl (Zofran Inj) 4 mg STK-MED ONCE .ROUTE 08/13/16 10:38 08/13/16 10:39 DC Metoclopramide HCl (Reglan) 10 mg STK-MED ONCE .ROUTE 08/13/16 10:38 08/13/16 10:39 DC Oxytocin (Oxytocin) 10 units STK-MED ONCE .ROUTE 08/13/16 10:38 08/13/16 10:39 DC Naloxone HCl (Narcan) 0.1 mg Q2M PRN IV FOR RESP RATE 8 OR LESS 08/13/16 12:30 08/14/16 12:29 DC Ketorolac Tromethamine (Toradol) 30 mg Q6H PRN IV PAIN 08/13/16 12:30 08/14/16 12:29 DC 08/14/16 10:53 Morphine Sulfate (morphine) 2 mg Q3H PRN IV PAIN LEVEL 1-5 08/13/16 12:30 08/14/16 12:29 DC Morphine Sulfate (morphine) 4 mg Q3H PRN IV PAIN LEVEL 6-10 08/13/16 12:30 08/14/16 12:29 DC Hydromorphone HCl (Dilaudid) 0.2 mg Q3H PRN IV PAIN LEVEL 1-5 08/13/16 12:30 08/14/16 12:29 DC Hydromorphone HCl (Dilaudid) 0.4 mg Q3H PRN IV PAIN LEVEL 6-10 08/13/16 12:30 08/14/16 12:29 DC Diphenhydramine HCl (Benadryl) 25 mg Q6H PRN IV ITCHING 08/13/16 12:30 08/14/16 12:29 DC Ondansetron HCl (Zofran Inj) 4 mg Q6H PRN IV NAUSEA AND/OR VOMITING 08/13/16 12:30 08/14/16 12:29 DC 08/13/16 12:40 Morphine Sulfate (Duramorph) 0.3 mg GIVEN ANESTH ONCE SPINAL 08/13/16 12:30 08/13/16 12:31 DC Ephedrine Sulfate 5 mg 5 mg [id number] PRN IV BLOOD PRESSURE SUPPORT 08/13/16 12:30 08/13/16 14:44 DC Lactated Ringer's (Lr) 1,000 ml @ 125 mls/hr Q8H IV 08/13/16 14:38 08/14/16 12:11 DC 08/14/16 05:56 IV Flush 3 ml 3 ml PER PROTOCOL IV 08/13/16 15:00 Oxytocin/Lactated Ringer's 500 ml @ 125 mls/hr Q4H IV 08/13/16 14:38 08/13/16 22:37 DC 08/13/16 17:43 Acetaminophen/ Codeine Phosphate (Tylenol No.3) 2 tab Q4H PRN PO PAIN LEVEL 7-10 08/13/16 15:00 Oxycodone/ Acetaminophen (Percocet (5/ 325)) 2 tab Q4H PRN PO PAIN LEVEL 7-10 08/13/16 15:00 08/15/16 10:29 Ibuprofen (Motrin) 800 mg Q8 PO 08/14/16 14:00 08/15/16 05:34 Simethicone (Mylicon) 160 mg Q8H PRN PO DISTENSION/GAS/BLOATING 08/13/16 15:00 Sodium Biphosphate/ Sodium Phosphate (Fleet Enema) 133 ml DAILY PRN ME CONSTIPATION 08/13/16 15:00 Lanolin (Myf-C-Gawgsm) 1 applic BEDSIDE MEDICATION PRN TOP BEDSIDE FOR MINA TO NIPPLES 08/13/16 15:00 08/15/16 02:49 Diphtheria/ Tetanus/Acell Pertussis (Adacel) 0.5 ml ONCE ONCE IM* 08/16/16 09:00 08/16/16 09:01 Measles/Mumps/ Rubella Vaccine Live 0.5 ml 0.5 ml ONCE ONCE SC* 08/16/16 09:00 08/16/16 09:01 Oxytocin/Lactated Ringer's 500 ml @ 0 mls/hr ONCE PRN IV For Hemorrhage Management 08/13/16 15:00 Methylergonovine Maleate (Methergine) 0.2 mg ONCE PRN IM VAGINAL BLEEDING 08/13/16 15:00 Carboprost Tromethamine (Hemabate) 250 mcg ONCE PRN IM VAGINAL BLEEDING 08/13/16 15:00 Misoprostol (Cytotec) 1,000 mcg ONCE PRN ME VAGINAL BLEEDING 08/13/16 15:00 Will be able to be discharged in AM tomorrow CHRISTA MADERA MD Aug 15, 2016 10:49
[2016-08-15 16:15] VITALS: BP 113/56; PULSE 94; RESP 16
[2016-08-15 20:00] VITALS: BP 127/68; PULSE 95; RESP 18
[2016-08-16] MEDS: OXYCODONE/ACETAMINOPHEN (5/325) TAB PO PRN ×2 (02:23→11:18)
[2016-08-16 04:00] VITALS: BP 126/72; PULSE 95; RESP 18
[2016-08-16] MEDS: IBUPROFEN 800 MG TAB PO SCH ×2 (05:38→13:32)
[2016-08-16 07:45] VITALS: BP 112/71; PULSE 84; RESP 16
[2016-08-16] MEDS ORDERED: MEASLES,MUMPS,RUBELLA VACCINE INJ SC* ONE (09:00)
[2016-08-16] MEDS ORDERED: DIPHTH/TET/ACEL PERTUSS (ADULT) 0.5 ML VIAL IM* ONE (09:00)
[2016-08-16] MEDS ORDERED: DOCU-144 PO (13:21)
[2016-08-16] MEDS ORDERED: ACET1TAB40 PO (13:22)
--- NOTE | 2016-08-16 17:52 | PN ---
Date/Time of Note Date/Time of Note DATE: 08/16/16 TIME: 17:48 OB Subjective Subjective Subjective Vaginal bleeding decreased. Breast feeding. Passed flatus. Ambulating. Tolerating regular diet. denies any dizziness, lightheadedness any other complaint. Pain well controlled with p.o. pain medication. OB Objective Objective Objective General appearance: Alert and oriented 4 patient does not appear to be in any acute distress. Abdomen: Soft, appropriate tenderness in the section incision. No evidence of hematoma, abnormal drainage, erythema or wound dehiscence. Incision: Clean dry and intact. Normal bowel sounds seen. Extremity: No calf tenderness, no click, 1+ symmetric bilateral edema. No cords palpable. Hematology - 72 Hrs Test 08/14/16 06:45 White Blood Count 15.910^3/ul (4.8-10.8) H Red Blood Count 3.9210^6/ul (4.20-5.40) L Hemoglobin 11.8g/dl (12.0-16.0) L Hematocrit 35.7% (37.0-47.0) L Mean Corpuscular Volume 91.1fl (82.0-101.0) Mean Corpuscular Hemoglobin 30.1pg (29.0-33.0) Mean Corpuscular Hemoglobin Concent 33.1g/dl (32.0-37.0) Red Cell Distribution Width 14.0% (11.5-14.5) Platelet Count 05110^3/UL (140-415) Mean Platelet Volume 11.9fl (7.4-10.4) H Neutrophils % 80.2% (39.0-77.0) H Lymphocytes % 8.3% (15.0-51.0) L Monocytes % 10.3% (0.0-11.0) Eosinophils % 0.4% (0.0-7.0) Basophils % 0.2% (0.0-2.0) Nucleated Red Blood Cells % 0.0/100WBC (0.0-0.0) Neutrophils # 12.710^3/ul (1.6-7.5) H Lymphocytes # 1.310^3/ul (0.8-2.9) Monocytes # 1.610^3/ul (0.3-0.9) H Eosinophils # 0.110^3/ul (0.0-0.5) Basophils # 0.010^3/ul (0.0-0.1) Nucleated Red Blood Cells # 0.010^3/ul (0.0-0.0) OB Assessment/Plan Other Assessment: Postop day #3 Status post for nonreassuring heart tracing. Doing well. She met the criteria for discharge. DC home next Follow-up with OB clinic in 2 weeks and 6 weeks for possible care. CELSO KING MD Aug 16, 2016 17:52
--- NOTE | 2016-08-16 17:54 | DS ---
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 Her Intra-Op and postoperative course was uncomplicated. On postoperative day #3 patient was noted to be stable enough to be discharged home. She is ambulating. Tolerated regular diet. Passed flatus. Vitals were stable. Her hemoglobin was 11 prior to discharge home. She was breast- feeding. Vaginal bleeding was minimal. Incision was clean dry and intact. Hospital Course Unremarkable Home Meds Reported Medications Acetaminophen with Codeine (Acetaminophen-Cod #3 Tablet) 1 Each Tablet, 1 TAB PO Q4 Y for PAIN, #20 TAB 08/16/16 Docusate Sodium* (Colace*) 100 Mg Capsule, 100 MG PO DAILY for 10 Days, #10 CAP 08/16/16 Discontinued Reported Medications Multivit/Min/Fol Ac/Iron/Pren* ( S*) 1 Tab Tab, 1 TAB PO DAILY, TAB 06/22/16 Calcium Carbonate (CALCIUM) 600 Mg Tablet, 600 MG PO DAILY, TAB 06/22/16 Ferrous Sulfate (Iron) 134 Mg Tablet, 134 MG PO, TAB 06/22/16 Discontinued Scripts Nitrofurantoin Monohyd Macrocr* (Macrobid*) 100 Mg Capsr, 100 MG PO BID, #14 CAP Prov:NICKI JORGE PA-C 07/29/15 CELSO KING MD Aug 16, 2016 17:54
== END 2016-08-16 14:00 | disposition home or self-care (01) | DRG 766 ==
LOC: OBT 07:20 → L-D 07:21 → OBT 08:04 → L-D 08:04 → PP1 13:59
PROVIDERS: ADMIT Obstetrics & Gynecology; ATTEND Obstetrics & Gynecology
PROC: 10D00Z1 Extraction of Products of Conception, Low, Open Approach (ICD-10-PCS; principal; 2016-08-13 11:00)
DX: O99.214 Obesity complicating childbirth (principal); E66.9 Obesity, unspecified; Z68.35 Body mass index [BMI] 35.0-35.9, adult; O76 Abnormality in fetal heart rate and rhythm complicating labor and delivery; Z3A.38 38 weeks gestation of pregnancy; Z37.0 Single live birth
CPT/HCPCS: 76818; 85025; 85610; 85730; 86592; 86885; 86900; 86901; 88307; 90715; 94760; 99464; G0463; J0690; J1885; J2274; J2405; J2590; J2765; J7120